=== PATIENT | female | born 1945 | race Caucasian/White ===

== ENCOUNTER 2017-02-18 12:07 | Observation (INO) ==
[2017-02-18] MEDS ORDERED: 0.9 % Sodium Chloride 1,000 ML IVC ONE (12:13)
[2017-02-18] MEDS ORDERED: Ondansetron 4 MG/2 ML VIAL ONE (12:18)
[2017-02-18] MEDS: Ondansetron 4 MG/2 ML VIAL IVP ONE ×2 (12:18→12:23)
--- NOTE | 2017-02-18 12:35 | Emergency Department Note ---
Disposition Clinical Impression: Bleeding gastrointestinal Qualifiers: GI bleed type/associated pathology: gastric ulcer Qualified Code(s): K25.4 - Chronic or unspecified gastric ulcer with hemorrhage Anemia Qualifiers: Anemia type: other cause Other causes of anemia: acute posthemorrhagic Qualified Code(s): D62 - Acute posthemorrhagic anemia Disposition: Admitted As Inpatient Condition: Fair Nausea/Vomiting/Diarrhea HPI - General Chief complaint: ED Nausea/Vomiting/Diarrhea Stated complaint: bloody stool Time Seen by Provider: 02/18/17 12:13 Source: patient, EMS Nursing Notes Reviewed: Yes Vital Signs Reviewed: Yes - History of Present Illness HPI Narrative: I did see the patient immediately upon arrival and also spoke with the paramedics patient presents with dark lack stool mixed with blood and also did have 1 episode of bloody emesis earlier today. She does have dyspnea with exertion and weakness. No current dizziness when she is lying down. And the patient does have a history of gastric bypass 12 years ago. She has been using ibuprofen as well as one aspirin per day due to chronic right leg pain. She denies any blood in the urine, bleeding of the gums, bruising of the skin. No fever. Social history: No smoking or alcohol. Is here with her - Related Data Home Medications Medication Instructions Recorded Confirmed Ascorbic Acid [Vitamin C] 1,000 mg PO DAILY 08/27/15 02/18/17 Cholecalciferol (Vitamin D3) 2,000 unit PO DAILY 08/27/15 02/18/17 [Vitamin D3] Cyanocobalamin (Vitamin B-12) 100 mcg PO 3XW 08/27/15 02/18/17 [Vitamin B12] Latanoprost [Xalatan] 1 drop BOTH EYES HS 08/27/15 02/18/17 Multivitamin [Multi-Day Vitamins] 1 tab PO DAILY 08/27/15 02/18/17 [place]-3S/Dha/Epa/Fish Oil [Fish 1 cap PO DAILY 08/27/15 02/18/17 Oil 1,200 mg Softgel] Allergies Allergy/AdvReac Type Severity Reaction Status Date / Time morphine Allergy Hives Verified 08/31/15 17:24 lisinopril AdvReac Mild Cough Verified 08/31/15 17:24 Review of Systems: Constitutional: No fever Vision: No blurred vision ENT: No rhinorrhea Respiratory: No cough Allergic: No allergies : No blood in urine GI: No blood in stool Hematologic: No bruising Dermatologic: No skin rash Musculoskeletal: No pain in the extremities Neuro: No numbness of the extremities Past Medical History - Past Medical History Medical history: Reports: diabetes, hypertension, other Surgical history: Reports: knee replacement, other Psychiatric history: Reports: no psych history 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 EYES: PERRL, no scleral icterus. NOSE: The nose is normal in appearance without rhinorrhea RESP: Normal chest excursion with respiration; breath sounds clear and equal bilaterally; no wheezes, rhonchi, or rales CARD: Regular rhythm, without murmurs, rub or gallop ABD: Non-distended; non-tender, soft,without rigidity, rebound or guarding SKIN: Normal for age and race; warm and dry; no apparent lesions Rectal: No masses. No fissures. Does have dark black stool mixed with red blood on my exam - General General appearance: alert, in no apparent distress Course Vital Signs Temperature 98.3 F 02/18/17 12:09 Pulse Rate 114 02/18/17 12:09 Respiratory Rate 20 02/18/17 12:09 Blood Pressure 110/64 02/18/17 12:09 O2 Sat by Pulse Oximetry 99 02/18/17 12:09 Temperature 99.7 F H 02/18/17 19:00 Pulse Rate 102 02/18/17 19:00 Respiratory Rate 16 02/18/17 19:00 Blood Pressure 101/65 02/18/17 19:00 O2 Sat by Pulse Oximetry 95 02/18/17 19:00 Oxygen Delivery Oxygen Delivery Room Air Nausea/Vomiting/Diarrhea - MDM Narrative Medical decision making narrative: The patient will have IV fluids, second IV, she is very pale, she does have her for IV Protonix. Type and screen will be done. The patient will be admitted to the hospital. She will be watched closely here in the emergency department. According the paramedics her blood pressure pulse were normal however her oxygen saturation was 93% 1235 I did speak with the hospitalist physician who accepted the patient for admission. I will also call GI. The patient does have 2 IV lines, type and screen, Protonix and she remains tachycardic however her blood pressure is in the acceptable range and she is not acutely short of breath at this time. She does appear pale. 1251 I did discuss the case with the staker surveying and he recommends 1 unit of packed red blood cells which I will give the patient. heart rate is down to 94 but her pressure is lower at 104. time 1408 and also some - Medical Records Medical records reviewed: Yes I reviewed the patient's medical records. - Lab Data Lab results reviewed: Yes I reviewed the patient's lab results. Result diagrams: 02/18/17 19:26 02/18/17 12:31 Lab Results 02/18/17 02/18/17 02/18/17 Range/Units 12:15 12:31 12:31 WBC 10.1 (4.3-11.1) K/mcL RBC 2.89 L (3.82-4.97) M/mcL Hgb 8.1 L (11.5-15.4) g/dL Hct 25.9 L (35.3-44.9) % MCV 89.6 (83.0-100.0) fL MCH 28.0 (28.0-33.3) pg MCHC 31.3 L (31.6-35.5) g/dL RDW 14.1 (11.5-14.5) % Plt Count 259 (140-400) K/mcL MPV 10.7 (9.4-12.4) fL Immature Gran % 0.6 (0-4) % Seg Neutrophils % 65.6 % Lymphocytes % 28.7 % Monocytes % 3.9 % Eosinophils % 0.7 % Basophils % 0.5 % Neutrophils # 6.7 (1.6-8.9) K/mcL Lymphocytes # 2.9 (0.6-4.6) K/mcL Monocytes # 0.4 (0.0-1.3) K/mcL Eosinophils # 0.1 (0.0-0.6) K/mcL Basophils # 0.1 (0.0-0.2) K/mcL Sodium 137 (136-145) mEq/L Potassium 4.8 H (3.5-4.5) mEq/L Chloride 104 (98-109) mEq/L Carbon Dioxide 20 (19-29) mEq/L BUN 44 H (7-20) mg/dL Creatinine 0.95 (0.57-1.11) mg/dL Est GFR ( Amer) > 60 (> 60) Est GFR (Non-Af Amer) 58 L (> 60) BUN/Creatinine Ratio 46 H (6-26) Glucose 272 H (70-99) mg/dL Calculated Osmolality 305 H (280-300) Calcium 8.6 (8.6-10.8) mg/dL Iron 111 (50-170) mcg/dL % Saturation 33 (15-50) % Transferrin 242 (180-382) mg/dL Ferritin 38 (5-204) ng/ml Stool Occult Blood Positive A (Negative) Blood Type Antibody Screen Antibody Identification MTS Gel Crossmatch 02/18/17 Range/Units 12:31 WBC (4.3-11.1) K/mcL RBC (3.82-4.97) M/mcL Hgb (11.5-15.4) g/dL Hct (35.3-44.9) % MCV (83.0-100.0) fL MCH (28.0-33.3) pg MCHC (31.6-35.5) g/dL RDW (11.5-14.5) % Plt Count (140-400) K/mcL MPV (9.4-12.4) fL Immature Gran % (0-4) % Seg Neutrophils % % Lymphocytes % % Monocytes % % Eosinophils % % Basophils % % Neutrophils # (1.6-8.9) K/mcL Lymphocytes # (0.6-4.6) K/mcL Monocytes # (0.0-1.3) K/mcL Eosinophils # (0.0-0.6) K/mcL Basophils # (0.0-0.2) K/mcL Sodium (136-145) mEq/L Potassium (3.5-4.5) mEq/L Chloride (98-109) mEq/L Carbon Dioxide (19-29) mEq/L BUN (7-20) mg/dL Creatinine (0.57-1.11) mg/dL Est GFR ( Amer) (> 60) Est GFR (Non-Af Amer) (> 60) BUN/Creatinine Ratio (6-26) Glucose (70-99) mg/dL Calculated Osmolality (280-300) Calcium (8.6-10.8) mg/dL Iron (50-170) mcg/dL % Saturation (15-50) % Transferrin (180-382) mg/dL Ferritin (5-204) ng/ml Stool Occult Blood (Negative) Blood Type O NEGATIVE Antibody Screen POSITIVE A Antibody Identification Inconclusive MTS Gel Crossmatch See Detail Critical Care Time Critical Care Time: Yes Total Critical Care Time: 30 Attestation: 30 minutes of critical care time were spent with the patient with massive GI hemorrhage and hypotension and tachycardia including orders for blood transfusion and consultation with GI 1412
[2017-02-18 12:37] LABS: Basophils # 0.1 K/mcL (0.0-0.2); Basophils % 0.5 %; Eosinophils # 0.1 K/mcL (0.0-0.6); Eosinophils % 0.7 %; Hematocrit 25.9 % (35.3-44.9); Hemoglobin 8.1 g/dL (11.5-15.4); Immature Granulocytes % 0.6 % (0-4); Lymphocytes # 2.9 K/mcL (0.6-4.6); Lymphocytes % 28.7 %; Mean Corpuscular HGB Conc 31.3 g/dL (31.6-35.5); Mean Corpuscular Volume 89.6 fL (83.0-100.0); Mean Platelet Volume 10.7 fL (9.4-12.4); Monocytes # 0.4 K/mcL (0.0-1.3); Monocytes % 3.9 %; Neutrophils # 6.7 K/mcL (1.6-8.9); Platelet Count 259 K/mcL (140-400); Red Blood Count 2.89 M/mcL (3.82-4.97); Red Cell Distribution Width 14.1 % (11.5-14.5); Segmented Neutrophils % 65.6 %
[2017-02-18 12:49] LABS: BUN/Creatinine Ratio 46 (6-26); Blood Urea Nitrogen 44 mg/dL (7-20); Calcium 8.6 mg/dL (8.6-10.8); Carbon Dioxide 20 mEq/L (19-29); Chloride 104 mEq/L (98-109); Glucose 272 mg/dL (70-99); Osmolality,Calculated 305 (280-300); Potassium 4.8 mEq/L (3.5-4.5); Sodium 137 mEq/L (136-145); eGFR For African Americans > 60 (> 60); eGFR For Non-African Americans 58 (> 60)
[2017-02-18] MEDS ORDERED: Ondansetron 4 MG/2 ML VIAL IVP PRN (12:56)
[2017-02-18] MEDS ORDERED: Naloxone 0.4 MG/ML INJ IVP PRN (12:56)
[2017-02-18] MEDS: Pantoprazole 40 MG in 0.9 % Sodium Chloride Mini Bag 100 ML IVC SCH ×2 (13:49→20:12)
--- NOTE | 2017-02-18 14:21 | Internal Med History&Physical ---
Date of Encounter: 02/18/17 Time of Encounter: 14:00 Assessment and Plan (1) Acute gastrointestinal bleeding Current visit: Yes Status: Acute Patient with GI bleed. Melena and hematemesis. Likely related to upper GI source. Monitor blood counts. Start IV Protonix. Consult GI. Keep nothing by mouth. Transfuse PRBC as needed (2) Essential hypertension Current visit: Yes Status: Chronic Monitor blood pressure. Continue home medications. (3) Anemia Current visit: Yes Status: Acute Hemoglobin 8.1. Likely due to blood loss. Could also have an underlying nutritional component due to prior history of gastric bypass. We will check iron levels, folic acid, B12 levels. Monitor blood counts closely. Qualifiers: Anemia type: other cause Other causes of anemia: acute posthemorrhagic Qualified Code(s): D62 - Acute posthemorrhagic anemia (4) Diabetes Current visit: Yes Status: Chronic Monitor blood sugars. Sliding scale insulin. Patient will be nothing by mouth for now. Start Diabetic diet when patient is able to eat. Qualifiers: Diabetes mellitus type: type 2 Diabetes mellitus complication status: without complication Diabetes mellitus fci insulin use: without terminal operations supervisor use Qualified Code(s): E11.9 - Type 2 diabetes mellitus without complications Internal Medicine - H&P: HPI Chief complaint: Melena Admitted From: Emergency Dept Plans for Post Hospital Care: Home History of present illness: Ms. Keith is a 72 year old female patient with history of prior gastric bypass surgery, hypertension who presented to the ER with complaints of melena and hematemesis. Her symptoms began this morning. She had one episode of large amount of melena and couple episodes of hematemesis. She denies any abdominal pain. She has never had such symptoms before. She does take Advil every day for chronic pain related to her previous right-sided femur fracture. She had a colonoscopy as part of routine surveillance 10 years back which was normal. She does report some generalized weakness, dizziness and lightheadedness today. Past Med Surg Social Fam HX - Past Medical History Attestation: Yes The following information was validated with the patient. Source: patient Medical history: diabetes, hypertension, other Psychiatric history: no psych history - Past Surgical History Surgical History: knee replacement, other - Social History Smoking Status: Never smoker Smokeless Tobacco Status: No Alcohol use: none Drug use: none - Family History Mother Living Status: Hx Family Cardiac Disorders: Yes Father Living Status: Hx Family Cancer: Yes Internal Medicine - H&P: Meds Ascorbic Acid [Vitamin C] 1,000 mg PO DAILY 08/27/15 [History] Cholecalciferol (Vitamin D3) [Vitamin D3] 2,000 unit PO DAILY 08/27/15 [History] Cyanocobalamin (Vitamin B-12) [Vitamin B12] 100 mcg PO 3XW 08/27/15 [History] Latanoprost [Xalatan] 1 drop BOTH EYES HS 08/27/15 [History] Multivitamin [Multi-Day Vitamins] 1 tab PO DAILY 08/27/15 [History] [place]-3S/Dha/Epa/Fish Oil [Fish Oil 1,200 mg Softgel] 1 cap PO DAILY 08/27/15 [ History] Allergies morphine Allergy (Verified 08/31/15 17:24) Hives lisinopril Adverse Reaction (Mild, Verified 08/31/15 17:24) Cough All Systems PM: A 10-system review of systems was performed and is negative for pertinent findings except as documented above in the HPI. - Constitutional Constitutional: malaise, no chills, no fever(s), no night sweats - EENT Eyes: no change in vision, no discharge, no pain, no photophobia Ears: no ear discharge, no ear pain, no tinnitus Nose, mouth and throat: no dysphagia, no nasal discharge, no neck pain, no sore throat - Cardiovascular Cardiovascular ROS IM: no chest pain, no diaphoresis, no dyspnea, no lightheadedness, no palpitations, no syncope - Respiratory Respiratory: no cough, no dyspnea, no wheezing, no excessive phlegm production - Gastrointestinal Gastrointestinal: hematemesis, melena, no abdominal pain, no diarrhea, no hematochezia, no nausea, no vomiting - Genitourinary Genitourinary: no change in urinary stream, no dysuria, no flank pain, no hematuria - Musculoskeletal Musculoskeletal ROS IM: no numbness, no tingling - Integumentary Integumentary IM: no rash, no unusual bruising - Neurological Neurological ROS: no confusion, no convulsions, no focal weakness, no numbness, no tingling, no tremor(s) - Hematologic/Lymphatic Hematologic/Lymphatic: no easy bruising - Constitutional Vitals: Temp Pulse Resp BP Pulse Ox 98.3 F 94 20 104/54 99 02/18/17 12:09 02/18/17 13:16 02/18/17 14:06 02/18/17 14:06 02/18/17 13:16 General appearance: Present: cooperative, mild distress, A&O X 3, pleasant, obese, answers questions appropriately - Respiratory Respiratory exam: Present: CTAB. Absent: accessory muscle use, rales, rhonchi, wheezes - Cardiovascular Cardiovascular exam: Present: RRR, +S1, +S2. Absent: diastolic murmur, gallop, rubs, systolic murmur - GI/Abdominal GI/Abdominal exam: Present: normal bowel sounds, soft, no peritoneal signs. Absent: distended, tenderness - Extremities Exam Extremities exam: Present: warm, radial pulses palpable and symetrical. Absent : calf tenderness, cyanotic, pedal edema - Neurological Exam Neurological exam: Present: alert, oriented X3, no focal deficits. Absent: facial droop, speech deficit - Skin Skin exam: Present: dry, intact Internal Med - H&P Results - Labs CBC & Chem 7: 02/18/17 12:31 02/18/17 12:31 - Attending Attestation This document has been at least partially created by [employer] voice recognition technology by Dr. Fontenot. Errors in grammar, wording or other phrases may exist. If errors are found after the documentation is signed, they will be addressed individually in the addendum section of this document when appropriate.
[2017-02-18] MEDS ORDERED: *HR* Midazolam HCl 5 MG/5 ML VIAL IVP ONE (14:43)
[2017-02-18] MEDS ORDERED: *HR* FentaNYL (PF) 100 MCG/2 ML VIAL ONE (14:44)
[2017-02-18] MEDS ORDERED: *HR* Midazolam HCl 5 MG/5 ML VIAL IVP PRN (15:00)
[2017-02-18] MEDS ORDERED: *HR* FentaNYL (PF) 100 MCG/2 ML VIAL IVP PRN (15:00)
[2017-02-18] MEDS ORDERED: Simethicone 40 MG/0.6 ML MLS IR ONE (15:00)
[2017-02-18] MEDS ORDERED: Tetracaine/Benzocaine/Butamben 200MG/SPRAY (100SPY/BOT) MM ONE (15:00)
[2017-02-18] MEDS ORDERED: *HR* EPINEPHrine 1 MG/10 ML SYRINGE INTRATRACH PRN (15:19)
[2017-02-18] MEDS: 0.9 % Sodium Chloride 1,000 ML IVC SCH (16:59)
[2017-02-18 19:02] LABS: % Iron Saturation 33 % (15-50); Iron 111 mcg/dL (50-170); Transferrin 242 mg/dL (180-382)
[2017-02-18 19:22] LABS: Ferritin 38 ng/ml (5-204)
[2017-02-18 19:34] LABS: Hematocrit 23.3 % (35.3-44.9); Hemoglobin 7.3 g/dL (11.5-15.4)
[2017-02-18] MEDS ORDERED: Acetaminophen 325 MG TABLET PO PRN (19:39)
[2017-02-18 20:30] LABS: Folate 15.4 ng/mL (7.0-31.4)
[2017-02-18] MEDS ORDERED: 0.9 % Sodium Chloride 250 ML ONE (23:33)
[2017-02-19] MEDS ORDERED: 0.9 % Sodium Chloride 250 ML ONE (04:04)
[2017-02-19] MEDS: 0.9 % Sodium Chloride 1,000 ML IVC SCH (04:20)
[2017-02-19] MEDS: Pantoprazole 40 MG in 0.9 % Sodium Chloride Mini Bag 100 ML IVC SCH (04:28)
[2017-02-19] MEDS ORDERED: Pantoprazole 40 MG VIAL IVP SCH (06:00)
[2017-02-19 07:16] VITALS: BP 107/70
--- NOTE | 2017-02-19 08:11 | Discharge Summary ---
Date of Encounter: 02/19/17 Time of Encounter: 08:07 - Discharge Diagnosis (1) Acute blood loss anemia Priority: Primary Status: Acute Comments: secondary to gastric ulcer due to chronic NSAID use/Advil (2) Gastric ulcer Priority: Primary Status: Acute Qualifiers: Gastric ulcer chronicity: acute Gastric ulcer complication status: with hemorrhage Qualified Code(s): K25.0 - Acute gastric ulcer with hemorrhage (3) H/O gastric bypass Priority: Secondary Status: Acute (4) HTN (hypertension) Priority: Secondary Status: Chronic Qualifiers: Hypertension type: essential hypertension Qualified Code(s): I10 - Essential (primary) hypertension (5) Diabetes Priority: Secondary Status: Chronic Qualifiers: Diabetes mellitus type: type 2 Diabetes mellitus complication status: without complication Diabetes mellitus skilled nursing insulin use: without terminal worker use Qualified Code(s): E11.9 - Type 2 diabetes mellitus without complications (6) Acute gastrointestinal bleeding Priority: Primary Status: Acute - Discharge Medications Prescriptions: Omeprazole [PriLOSEC] 40 mg PO BID #60 cap Home Medications: Ascorbic Acid [Vitamin C] 1,000 mg PO DAILY 08/27/15 [History] Cholecalciferol (Vitamin D3) [Vitamin D3] 2,000 unit PO DAILY 08/27/15 [History] Cyanocobalamin (Vitamin B-12) [Vitamin B12] 100 mcg PO 3XW 08/27/15 [History] Latanoprost [Xalatan] 1 drop BOTH EYES HS 08/27/15 [History] Multivitamin [Multi-Day Vitamins] 1 tab PO DAILY 08/27/15 [History] [place]-3S/Dha/Epa/Fish Oil [Fish Oil 1,200 mg Softgel] 1 cap PO DAILY 08/27/15 [ History] Acetaminophen [Tylenol] 650 mg PO Q6HR PRN #0 tablet 02/19/17 [Rx] Omeprazole [PriLOSEC] 40 mg PO BID #60 cap 02/19/17 [Rx] Allergies/Adverse Reactions: Allergies morphine Allergy (Verified 08/31/15 17:24) Hives lisinopril Adverse Reaction (Mild, Verified 08/31/15 17:24) Cough Date of admission: 02/18/17 13:40 Primary care physician: Lenny Jacobs MD Consults: 02/18/17 14:10 Consult to Gastroenterology [CONS] Routine Consulting Provider: Gastroenterology [facility] Reason for Consult: GI bleed; ED discussed with GI Time Notified: 14:11 Call Completed: Yes - Patient Status Disposition: Home, Self-Care Condition: Fair Overall status at discharge: patient is back to baseline - Discharge Instructions Follow Up With: Lenny Jacobs MD [Primary Care Provider] - Additional Instructions: Follow up with primary care physician in 7 days. Avoid Advil. Start omeprazole 40 mg twice a day. Follow up with Dr Unger in 3-4 weeks. Can start Iron supplements - Diet and Activity Activity: increase activity as tolerated Diet: diabetic diet Hospital course: Ms. Keith is a 72 year old female with history of prior gastric bypass surgery , hypertension, DM 2 not ID, who presented to the ER with complaints of melena and hematemesis. She had one episode of large amount of melena and couple episodes of hematemesis. She denied any abdominal pain. She has never had such symptoms before. She did take Advil every day for chronic pain related to her previous right-sided femur fracture. She had a colonoscopy as part of routine surveillance 10 years back which was normal. She did report some generalized weakness, dizziness and lightheadedness. her hemoglobin dropped from 8.1 mert 7.3. Had II units of blood transfused. An upper endoscopy was performed and a non bleeding gastric ulcer was found, the ulcer was clipped, and was found to have clot on top. Has not had any further episodes of hematemesis or melena. Hemoglobin is 8.8 Avoid Nsaids - Time Spent with Patient Total time spent providing and/or coordinating discharge services: Greater than 30 minutes (40 min) - Constitutional Vitals: Temp Pulse Resp BP Pulse Ox 98.4 F 77 16 107/70 96 02/19/17 07:15 02/19/17 07:15 02/19/17 07:15 02/19/17 07:15 02/19/17 07:15 General appearance: Present: cooperative, mild distress, A&O X 3, pleasant, obese, answers questions appropriately - Head Head exam: Present: atraumatic, normocephalic - Eye Eye exam: Present: PERRL, conjuntiva pink, sclera anicteric Pupils: Present: PERRL - Neck Neck exam general surgery: Present: supple, trachea midline. Absent: lymphadenopathy - Respiratory Respiratory exam: Present: CTAB. Absent: accessory muscle use, rales, rhonchi, wheezes - Cardiovascular Cardiovascular exam: Present: RRR, +S1, +S2. Absent: diastolic murmur, gallop, rubs, systolic murmur - GI/Abdominal GI/Abdominal exam: Present: normal bowel sounds, soft, no peritoneal signs. Absent: distended, tenderness - Extremities Exam Extremities exam: Present: warm, radial pulses palpable and symetrical. Absent : calf tenderness, cyanotic, pedal edema - Neurological Exam Neurological exam: Present: CN II-XII intact, oriented X3, no focal deficits. Absent: pronater drift, facial droop, speech deficit - Skin Skin exam: Present: dry, intact
[2017-02-19 08:35] LABS: Basophils % 0.3 %; Eosinophils # 0.1 K/mcL (0.0-0.6); Eosinophils % 1.2 %; Hemoglobin 8.8 g/dL (11.5-15.4); Immature Granulocytes % 0.6 % (0-4); Lymphocytes # 3.6 K/mcL (0.6-4.6); Lymphocytes % 34.7 %; Mean Corpuscular HGB Conc 31.4 g/dL (31.6-35.5); Mean Corpuscular Hemoglobin 27.9 pg (28.0-33.3); Mean Corpuscular Volume 88.9 fL (83.0-100.0); Mean Platelet Volume 11.3 fL (9.4-12.4); Monocytes # 0.5 K/mcL (0.0-1.3); Monocytes % 4.9 %; Neutrophils # 6.1 K/mcL (1.6-8.9); Platelet Count 199 K/mcL (140-400); Red Blood Count 3.15 M/mcL (3.82-4.97); Red Cell Distribution Width 14.6 % (11.5-14.5); Segmented Neutrophils % 58.3 %
[2017-02-19 08:51] LABS: BUN/Creatinine Ratio 30 (6-26); Blood Urea Nitrogen 24 mg/dL (7-20); Calcium 8.6 mg/dL (8.6-10.8); Carbon Dioxide 24 mEq/L (19-29); Chloride 107 mEq/L (98-109); Glucose 150 mg/dL (70-99); Osmolality,Calculated 297 (280-300); Potassium 3.9 mEq/L (3.5-4.5); Sodium 140 mEq/L (136-145); eGFR For African Americans > 60 (> 60); eGFR For Non-African Americans > 60 (> 60)
--- NOTE | 2017-02-19 08:56 | Gastroenterology Consult Note ---
<Elza Smith - Last Filed: 02/19/17 09:51> Date of Encounter: 02/19/17 Time of Encounter: 08:50 - Assessment and plan (1) Acute gastrointestinal bleeding Current Visit: Yes Status: Acute Assessment and plan: Underwent EGD evaluation with Dr. Unger this am, gastric ulcer was located. Patient has hx of prior gastric bypass surgery. Needs to be d/c home on omeprazole, however, recommendation to empty the capsules in food or beverage to consume, do not swallow the capsules whole. Carafate liquid tid x 60 days is recommended, as well as a clear liquid diet today, soft foods over the next couple of days only. Return to GI clinic in follow up with Dr. Unger or myself. (2) H/O gastric bypass Current Visit: Yes Status: Acute - Time Spent With Patient Total time spent is greater than 50% in coordination of care (as documented) at patient's floor/unit and/or counseling patient: less than 15 minutes GI History of Present Illness - Data of Consult Patient: new to practice Consult date: 02/19/17 Requesting Physician: Carlos Thomas - Consult Narrative Reason for consult: hematemesis/melena History of present illness: Ms. Keith is a 72 year old female with PMH DM, HTN, prior gastric bypass surgery, who presented to the ER with complaints of melena and hematemesis. Her symptoms began yesterday morning. She had one episode of large amount of melena and couple episodes of hematemesis. She denies any abdominal pain. She has never had such symptoms before. She does take Advil every day for chronic pain related to her previous right-sided femur fracture. She had a colonoscopy as part of routine surveillance 10 years back which was normal. She does report some generalized weakness, dizziness and lightheadedness today. Patient seen and examined at bedside. She was resting comfortably. She states she was using too many NSAIDs prior to this event, however, she states the only other symptom she had prior to melena/hematemesis was excess flatulence/gas and weakness just prior to the event. Last Cscope 10 years ago was normal. Colonoscopy: 10 years Past Med Surg Social Fam HX - Past Medical History Medical history: diabetes, hypertension, other Psychiatric history: no psych history - Past Surgical History Surgical History: knee replacement, other - Social History Smoking Status: Never smoker Smokeless Tobacco Status: No Alcohol use: none Drug use: none - Family History Mother Living Status: Hx Family Cardiac Disorders: Yes Father Living Status: Hx Family Cancer: Yes - Gastrointestinal NSAID use: Yes` Anticoagulation Use: None Number of BM Per Day: daily Gastrointestinal: Present: hematemesis, melena - Constitutional Constitutional: fatigue - EENT Eyes: as per HPI Ears: Present: as per HPI Nose, mouth and throat: Present: as per HPI - Cardiovascular Cardiovascular ROS: Present: as per HPI - Respiratory Respiratory IM: Present: as per HPI - Neurological ROS Neurological GI: Present: dizziness, weakness - Hematologic/Lymphatic Hematologic/Lymphatic pediatric: Present: as per HPI - Musculoskeletal Musculoskeletal ROS GI: Present: as per HPI - Integumentary Integumentary GI: Present: as per HPI - Psychiatric ROS Psychiatric GI: Present: as per HPI - Endocrine Endocrine IM: Present: as per HPI - Constitutional Vitals: Temp Pulse Resp BP Pulse Ox 98.4 F 77 16 107/70 96 02/19/17 07:15 02/19/17 07:15 02/19/17 07:15 02/19/17 07:15 02/19/17 07:15 General appearance: Present: cooperative, A&O X 3, no acute distress, answers questions appropriately - Head Head exam: Present: atraumatic, normocephalic - Eye Eye exam: Present: normal appearance, sclera anicteric - ENT ENT exam: Present: mucous membranes moist - Neck Neck exam general surgery: Present: normal inspection, trachea midline - Respiratory Respiratory exam: Present: CTAB - Cardiovascular Cardiovascular exam: Present: RRR, +S1, +S2 - GI/Abdominal GI/Abdominal exam: Present: normal bowel sounds, soft, no peritoneal signs - Rectal Rectal exam: Present: deferred - Extremities Exam Extremities exam: Present: warm - Neurological Exam Neurological exam: Present: no focal deficits - Psychiatric Psychiatric exam: Present: normal affect, normal mood - Skin Skin exam: Present: dry, intact, normal color, warm Results - Labs CBC & Chem 7: 02/19/17 08:03 02/19/17 08:03 Labs: Last Result Calcium 8.6 mg/dL (8.6-10.8) 02/19/17 08:03 Iron 111 mcg/dL (50-170) 02/18/17 12:31 % Saturation 33 % (15-50) 02/18/17 12:31 Transferrin 242 mg/dL (180-382) 02/18/17 12:31 Ferritin 38 ng/ml (5-204) 02/18/17 12:31 Vitamin B12 881 pg/mL (213-816) H 02/18/17 19:26 Folate 15.4 ng/mL (7.0-31.4) 02/18/17 19:26 Stool Occult Blood Positive (Negative) A 02/18/17 12:15 Entire Visit Hgb 8.8 g/dL (11.5-15.4) L D 02/19/17 08:03 Hct 28.0 % (35.3-44.9) L 02/19/17 08:03 Ferritin 38 ng/ml (5-204) 02/18/17 12:31 Folate 15.4 ng/mL (7.0-31.4) 02/18/17 19:26 Consult Discharge Plan - Plan Additional Instructions: Follow up with primary care physician in 7 days. Avoid Advil. Start omeprazole 40 mg twice a day. Follow up with Dr Unger in 3-4 weeks. Can start Iron supplements Referrals: William Unger MD [Partnered Physician] - (Web request sent on 02/19/17) Lenny Jacobs MD [Primary Care Provider] - 02/26/17 10:00 am Prescriptions: Omeprazole [PriLOSEC] 40 mg PO BID #60 cap <William Unger - Last Filed: 02/19/17 10:35> Date of Encounter: 02/19/17 Time of Encounter: 10:00 - Time Spent With Patient Total time spent is greater than 50% in coordination of care (as documented) at patient's floor/unit and/or counseling patient: GI History of Present Illness - Data of Consult Requesting Physician: Carlos Thomas - Consult Narrative History of present illness: Ms. Keith is a 72 year old female - Constitutional Vitals: Temp Pulse Resp BP Pulse Ox 98.4 F 77 16 107/70 96 02/19/17 07:15 02/19/17 07:15 02/19/17 07:15 02/19/17 07:15 02/19/17 07:15 Results - Labs CBC & Chem 7: 02/19/17 08:03 02/19/17 08:03 Labs: Last Result Calcium 8.6 mg/dL (8.6-10.8) 02/19/17 08:03 Iron 111 mcg/dL (50-170) 02/18/17 12:31 % Saturation 33 % (15-50) 02/18/17 12:31 Transferrin 242 mg/dL (180-382) 02/18/17 12:31 Ferritin 38 ng/ml (5-204) 02/18/17 12:31 Vitamin B12 881 pg/mL (213-816) H 02/18/17 19:26 Folate 15.4 ng/mL (7.0-31.4) 02/18/17 19:26 Stool Occult Blood Positive (Negative) A 02/18/17 12:15 Entire Visit Hgb 8.8 g/dL (11.5-15.4) L D 02/19/17 08:03 Hct 28.0 % (35.3-44.9) L 02/19/17 08:03 Ferritin 38 ng/ml (5-204) 02/18/17 12:31 Folate 15.4 ng/mL (7.0-31.4) 02/18/17 19:26 - Attending Attestation I examined this patient and my medical decision-making was reviewed with the ELECTRICAL PROSPECTING OPERATOR/PA/Advanced Practice Nurse/Resident Physician. I agree with the documented findings, disposition and treatment plan as described except to the extent set forth below. Discharge home on by mouth PPI twice a day. Patient is to take out the granules from the capsule and sprinkle on the food. Also Carafate liquid 3 times a day
[2017-02-19] MEDS ORDERED: Ascorbic Acid 500 MG TABLET PO SCH (09:00)
[2017-02-19] MEDS ORDERED: Multivit/Ca/Min/Fe/FA 1 TAB TABLET PO SCH (09:00)
== END 2017-02-19 12:35 | disposition home or self-care (01) ==
LOC: EMEROO 12:07 → 3ANU 12:07
PROVIDERS: ADMIT Internal Medicine; ATTEND Internal Medicine

== ENCOUNTER 2021-11-27 07:26 | Inpatient (IN) ==
[2021-11-27] MEDS ORDERED: *HR* FentaNYL (PF) 100 MCG/2 ML VIAL IVP ONE (07:35)
[2021-11-27] MEDS ORDERED: Ondansetron 4 MG/2 ML VIAL IVP ONE (07:35)
[2021-11-27] MEDS: 0.9 % Sodium Chloride 1,000 ML IVC SCH ×2 (08:01→20:12)
[2021-11-27 08:49] LABS: Basophils % 0.2 %; Eosinophils % 0.1 %; Hematocrit 32.8 % (35.3-44.9); Hemoglobin 10.3 g/dL (11.5-15.4); Immature Granulocytes % 0.4 % (0-4); Lymphocytes # 0.4 K/mcL (0.6-4.6); Lymphocytes % 4.4 %; Mean Corpuscular HGB Conc 31.4 g/dL (31.6-35.5); Mean Corpuscular Hemoglobin 28.9 pg (28.0-33.3); Mean Corpuscular Volume 92.1 fL (83.0-100.0); Mean Platelet Volume 10.9 fL (9.4-12.4); Monocytes # 0.6 K/mcL (0.0-1.3); Monocytes % 6.6 %; Neutrophils # 8.1 K/mcL (1.6-8.9); Platelet Count 172 K/mcL (140-400); Red Blood Count 3.56 M/mcL (3.82-4.97); Red Cell Distribution Width 13.1 % (11.5-14.5); Segmented Neutrophils % 88.3 %; White Blood Count 9.2 K/mcL (4.3-11.1)
[2021-11-27 09:00] LABS: Calcium 8.5 mg/dL (8.6-10.3); Potassium 4.5 mEq/L (3.5-5.1)
[2021-11-27] MEDS ORDERED: *HR* OxyCODONE Immed Rel 5 MG TABLET PO PRN (09:41)
[2021-11-27] MEDS ORDERED: Acetaminophen 325 MG TABLET PO PRN (09:41)
[2021-11-27] MEDS ORDERED: *HR* HYDROcodone/Acet 5/325 mg TABLET PO PRN (09:41)
[2021-11-27] MEDS ORDERED: Ondansetron 4 MG/2 ML VIAL IVP PRN (09:41)
[2021-11-27] MEDS ORDERED: Naloxone 0.4 MG/ML INJ IVP PRN (09:41)
[2021-11-27 10:03] LABS: Bacteria,Urine Many per hpf (None-Few); Bilirubin,Urine Negative (Negative); Blood,Urine Trace (Negative); Clarity,Urine Clear (Clear); Color,Urine Light-Yellow (Yellow); Glucose,Urine (UA) Normal (Normal); Ketones,Urine Negative (Negative); Leukocyte Esterase,Urine Moderate (Negative); Mucus,Urine Few per lpf (None-Few); Nitrite,Urine Negative (Negative); PH,Urine 5.5 pH Units (5.0-8.0); Protein,Urine Trace mg/dL (Neg-Trace); RBC,Urine 0-3 per hpf (0-3); Specific Gravity,Urine 1.009 (1.010-1.025); Urobilinogen,Urine Normal (Normal); WBC,Urine 15-30 per hpf (0-3)
[2021-11-27] MEDS ORDERED: *HR* Dextrose 50 % in Water (Syg) 50 ML SYRINGE IVP PRN (10:32)
[2021-11-27] MEDS ORDERED: Dextrose Gel 15 GM/37.5 ML TUBE PO PRN (10:32)
[2021-11-27] MEDS ORDERED: D5% in Water 1,000 ML IVC PRN (10:32)
[2021-11-27 11:10] LABS: Influenza A PCR Negative (Negative); Influenza B PCR Negative (Negative); Resp. Syncytial Virus PCR Negative (Negative)
[2021-11-27 11:13] LABS: Thyroid Stimulating Hormone 2.58 mcIU/mL (0.340-5.600)
[2021-11-27 11:14] LABS: SARS-CoV-2 by PCR (In House) Negative (Negative)
[2021-11-27] MEDS: Insulin LISPRO 300 UNITS/3 ML VIAL SUBQ SCH ×3 (12:28→21:05)
[2021-11-27] MEDS: *HR* Heparin 5,000 UNIT/ML VIAL SQ SCH ×2 (18:05→21:04)
[2021-11-27] MEDS: Gabapentin 300 MG CAPSULE PO SCH (21:05)
[2021-11-27] MEDS: Latanoprost 2.5 ML BOTTLE BOTH EYES SCH (21:05)
[2021-11-28 05:17] LABS: Hematocrit 31.3 % (35.3-44.9); Hemoglobin 9.9 g/dL (11.5-15.4); Mean Corpuscular HGB Conc 31.6 g/dL (31.6-35.5); Mean Corpuscular Hemoglobin 29.5 pg (28.0-33.3); Mean Corpuscular Volume 93.2 fL (83.0-100.0); Mean Platelet Volume 11.2 fL (9.4-12.4); Platelet Count 193 K/mcL (140-400); Red Blood Count 3.36 M/mcL (3.82-4.97); Red Cell Distribution Width 13.2 % (11.5-14.5)
[2021-11-28 05:32] LABS: BUN/Creatinine Ratio 13 (6-26); Blood Urea Nitrogen 13 mg/dL (8-23); Calcium 8.7 mg/dL (8.6-10.3); Carbon Dioxide 25 mEq/L (23-29); Chloride 97 mEq/L (98-107); Glucose 148 mg/dL (70-105); Osmolality,Calculated 273 (280-300); Potassium 3.9 mEq/L (3.5-5.1); Sodium 130 mEq/L (136-145); eGFR For African Americans > 60 (> 60); eGFR For Non-African Americans 56 (> 60)
[2021-11-28] MEDS: *HR* Heparin 5,000 UNIT/ML VIAL SQ SCH ×3 (05:35→20:59)
[2021-11-28] MEDS: Insulin LISPRO 300 UNITS/3 ML VIAL SUBQ SCH ×4 (07:56→20:59)
[2021-11-28] MEDS: Multivit/Ca/Min/Fe/FA 1 TAB TABLET PO SCH (09:25)
[2021-11-28] MEDS: Ascorbic Acid 500 MG TABLET PO SCH (09:25)
[2021-11-28] MEDS: Gabapentin 300 MG CAPSULE PO SCH ×2 (09:25→20:58)
[2021-11-28 10:57] LABS: Calcium 8.6 mg/dL (8.6-10.3); Potassium 4.3 mEq/L (3.5-5.1)
[2021-11-28] MEDS: 0.9 % Sodium Chloride 1,000 ML IVC SCH (14:55)
[2021-11-28] MEDS: *HR* HYDROcodone/Acet 5/325 mg TABLET PO PRN (17:45)
[2021-11-28] MEDS ORDERED: QUEtiapine Fumarate 25 MG TABLET PO ONE (20:50)
[2021-11-28] MEDS: Latanoprost 2.5 ML BOTTLE BOTH EYES SCH (20:58)
[2021-11-29 03:44] LABS: Basophils % 0.2 %; Eosinophils # 0.2 K/mcL (0.0-0.6); Eosinophils % 2.7 %; Hematocrit 29.3 % (35.3-44.9); Hemoglobin 9.2 g/dL (11.5-15.4); Immature Granulocytes % 0.3 % (0-4); Lymphocytes # 1.2 K/mcL (0.6-4.6); Lymphocytes % 13.1 %; Mean Corpuscular HGB Conc 31.4 g/dL (31.6-35.5); Mean Corpuscular Hemoglobin 29.1 pg (28.0-33.3); Mean Corpuscular Volume 92.7 fL (83.0-100.0); Mean Platelet Volume 11.1 fL (9.4-12.4); Monocytes % 11.6 %; Neutrophils # 6.3 K/mcL (1.6-8.9); Platelet Count 196 K/mcL (140-400); Red Blood Count 3.16 M/mcL (3.82-4.97); Red Cell Distribution Width 13.4 % (11.5-14.5); Segmented Neutrophils % 72.1 %; White Blood Count 8.8 K/mcL (4.3-11.1)
[2021-11-29 04:00] LABS: BUN/Creatinine Ratio 17 (6-26); Blood Urea Nitrogen 18 mg/dL (8-23); Calcium 8.8 mg/dL (8.6-10.3); Carbon Dioxide 27 mEq/L (23-29); Chloride 96 mEq/L (98-107); Glucose 165 mg/dL (70-105); Magnesium 1.9 mg/dL (1.6-2.6); Osmolality,Calculated 276 (280-300); Sodium 130 mEq/L (136-145); eGFR For African Americans > 60 (> 60); eGFR For Non-African Americans 50 (> 60)
[2021-11-29] MEDS: *HR* HYDROcodone/Acet 5/325 mg TABLET PO PRN ×2 (04:39→16:56)
[2021-11-29] MEDS: *HR* Heparin 5,000 UNIT/ML VIAL SQ SCH ×3 (04:39→21:07)
[2021-11-29] MEDS: Ascorbic Acid 500 MG TABLET PO SCH (07:50)
[2021-11-29] MEDS: Multivit/Ca/Min/Fe/FA 1 TAB TABLET PO SCH (07:50)
[2021-11-29] MEDS: Gabapentin 300 MG CAPSULE PO SCH ×2 (07:50→21:05)
[2021-11-29] MEDS: Insulin LISPRO 300 UNITS/3 ML VIAL SUBQ SCH ×4 (08:12→21:35)
[2021-11-29] MEDS: Piperacillin/Tazobactam 3.375 GM in 0.9 % Sodium Chloride Mini Bag 100 ML IVPB SCH ×2 (13:44→21:06)
[2021-11-29] MEDS: Melatonin 3 MG TABLET PO SCH (21:05)
[2021-11-29] MEDS: Latanoprost 2.5 ML BOTTLE BOTH EYES SCH (21:06)
[2021-11-30 05:14] LABS: Basophils % 0.3 %; Eosinophils # 0.2 K/mcL (0.0-0.6); Eosinophils % 2.7 %; Hematocrit 30.4 % (35.3-44.9); Hemoglobin 9.2 g/dL (11.5-15.4); Immature Granulocytes % 0.3 % (0-4); Lymphocytes # 1.1 K/mcL (0.6-4.6); Lymphocytes % 12.7 %; Mean Corpuscular HGB Conc 30.3 g/dL (31.6-35.5); Mean Corpuscular Hemoglobin 28.5 pg (28.0-33.3); Mean Corpuscular Volume 94.1 fL (83.0-100.0); Mean Platelet Volume 10.9 fL (9.4-12.4); Monocytes # 0.7 K/mcL (0.0-1.3); Monocytes % 8.1 %; Neutrophils # 6.7 K/mcL (1.6-8.9); Platelet Count 229 K/mcL (140-400); Red Blood Count 3.23 M/mcL (3.82-4.97); Red Cell Distribution Width 13.4 % (11.5-14.5); Segmented Neutrophils % 75.9 %; White Blood Count 8.8 K/mcL (4.3-11.1)
[2021-11-30 05:31] LABS: BUN/Creatinine Ratio 16 (6-26); Blood Urea Nitrogen 14 mg/dL (8-23); Carbon Dioxide 24 mEq/L (23-29); Chloride 98 mEq/L (98-107); Glucose 187 mg/dL (70-105); Magnesium 1.8 mg/dL (1.6-2.6); Osmolality,Calculated 277 (280-300); Potassium 4.1 mEq/L (3.5-5.1); Sodium 131 mEq/L (136-145); eGFR For African Americans > 60 (> 60); eGFR For Non-African Americans > 60 (> 60)
[2021-11-30] MEDS: *HR* Heparin 5,000 UNIT/ML VIAL SQ SCH ×3 (06:14→20:38)
[2021-11-30] MEDS: Piperacillin/Tazobactam 3.375 GM in 0.9 % Sodium Chloride Mini Bag 100 ML IVPB SCH ×3 (06:14→20:37)
[2021-11-30] MEDS: Multivit/Ca/Min/Fe/FA 1 TAB TABLET PO SCH (08:10)
[2021-11-30] MEDS: Ascorbic Acid 500 MG TABLET PO SCH (08:10)
[2021-11-30] MEDS: Insulin LISPRO 300 UNITS/3 ML VIAL SUBQ SCH ×4 (08:19→20:37)
[2021-11-30] MEDS: Acetaminophen 325 MG TABLET PO PRN (18:14)
[2021-11-30] MEDS: Melatonin 3 MG TABLET PO SCH (20:37)
[2021-11-30] MEDS: Latanoprost 2.5 ML BOTTLE BOTH EYES SCH (20:38)
[2021-12-01 00:35] LABS: Basophils # 0.1 K/mcL (0.0-0.2); Basophils % 0.6 %; Eosinophils # 0.3 K/mcL (0.0-0.6); Eosinophils % 3.1 %; Hematocrit 30.6 % (35.3-44.9); Hemoglobin 9.5 g/dL (11.5-15.4); Immature Granulocytes % 0.7 % (0-4); Lymphocytes # 1.5 K/mcL (0.6-4.6); Lymphocytes % 16.9 %; Mean Corpuscular Hemoglobin 28.8 pg (28.0-33.3); Mean Corpuscular Volume 92.7 fL (83.0-100.0); Mean Platelet Volume 10.5 fL (9.4-12.4); Monocytes # 0.8 K/mcL (0.0-1.3); Monocytes % 9.2 %; Platelet Count 269 K/mcL (140-400); Red Cell Distribution Width 13.3 % (11.5-14.5); Segmented Neutrophils % 69.5 %; White Blood Count 8.6 K/mcL (4.3-11.1)
[2021-12-01 00:54] LABS: BUN/Creatinine Ratio 17 (6-26); Blood Urea Nitrogen 14 mg/dL (8-23); Calcium 9.1 mg/dL (8.6-10.3); Carbon Dioxide 26 mEq/L (23-29); Chloride 98 mEq/L (98-107); Glucose 166 mg/dL (70-105); Osmolality,Calculated 280 (280-300); Sodium 133 mEq/L (136-145); eGFR For African Americans > 60 (> 60); eGFR For Non-African Americans > 60 (> 60)
[2021-12-01] MEDS: Piperacillin/Tazobactam 3.375 GM in 0.9 % Sodium Chloride Mini Bag 100 ML IVPB SCH ×3 (04:55→23:39)
[2021-12-01] MEDS: *HR* Heparin 5,000 UNIT/ML VIAL SQ SCH ×3 (04:55→23:41)
[2021-12-01] MEDS: Multivit/Ca/Min/Fe/FA 1 TAB TABLET PO SCH (08:40)
[2021-12-01] MEDS: Ascorbic Acid 500 MG TABLET PO SCH (08:41)
[2021-12-01] MEDS: Insulin LISPRO 300 UNITS/3 ML VIAL SUBQ SCH ×4 (10:19→23:38)
[2021-12-01] MEDS: *HR* HYDROcodone/Acet 5/325 mg TABLET PO PRN ×2 (11:05→19:02)
[2021-12-01] MEDS: Latanoprost 2.5 ML BOTTLE BOTH EYES SCH (23:37)
[2021-12-01] MEDS: Melatonin 3 MG TABLET PO SCH (23:37)
[2021-12-02 05:06] LABS: BUN/Creatinine Ratio 20 (6-26); Blood Urea Nitrogen 17 mg/dL (8-23); Calcium 9.2 mg/dL (8.6-10.3); Carbon Dioxide 26 mEq/L (23-29); Chloride 98 mEq/L (98-107); Glucose 194 mg/dL (70-105); Osmolality,Calculated 287 (280-300); Potassium 3.8 mEq/L (3.5-5.1); Sodium 135 mEq/L (136-145); eGFR For African Americans > 60 (> 60); eGFR For Non-African Americans > 60 (> 60)
[2021-12-02] MEDS: *HR* HYDROcodone/Acet 5/325 mg TABLET PO PRN ×2 (05:58→18:00)
[2021-12-02] MEDS: Piperacillin/Tazobactam 3.375 GM in 0.9 % Sodium Chloride Mini Bag 100 ML IVPB SCH ×3 (05:58→20:44)
[2021-12-02] MEDS: *HR* Heparin 5,000 UNIT/ML VIAL SQ SCH ×3 (05:59→20:45)
[2021-12-02] MEDS: Ascorbic Acid 500 MG TABLET PO SCH (07:54)
[2021-12-02] MEDS: Multivit/Ca/Min/Fe/FA 1 TAB TABLET PO SCH (07:54)
[2021-12-02] MEDS: Insulin LISPRO 300 UNITS/3 ML VIAL SUBQ SCH ×4 (07:55→20:46)
[2021-12-02] MEDS: Acetaminophen 325 MG TABLET PO PRN (20:45)
[2021-12-02] MEDS: Melatonin 3 MG TABLET PO SCH (20:45)
[2021-12-02] MEDS: Latanoprost 2.5 ML BOTTLE BOTH EYES SCH (20:46)
[2021-12-03 05:13] LABS: BUN/Creatinine Ratio 15 (6-26); Blood Urea Nitrogen 13 mg/dL (8-23); Calcium 9.4 mg/dL (8.6-10.3); Carbon Dioxide 29 mEq/L (23-29); Chloride 98 mEq/L (98-107); Glucose 173 mg/dL (70-105); Osmolality,Calculated 284 (280-300); Potassium 3.9 mEq/L (3.5-5.1); Sodium 135 mEq/L (136-145); eGFR For African Americans > 60 (> 60); eGFR For Non-African Americans > 60 (> 60)
[2021-12-03] MEDS: Piperacillin/Tazobactam 3.375 GM in 0.9 % Sodium Chloride Mini Bag 100 ML IVPB SCH ×2 (05:50→19:04)
[2021-12-03] MEDS: *HR* Heparin 5,000 UNIT/ML VIAL SQ SCH ×3 (06:03→20:17)
[2021-12-03] MEDS: *HR* HYDROcodone/Acet 5/325 mg TABLET PO PRN ×2 (06:04→19:04)
[2021-12-03] MEDS: Ascorbic Acid 500 MG TABLET PO SCH (12:10)
[2021-12-03] MEDS: Multivit/Ca/Min/Fe/FA 1 TAB TABLET PO SCH (12:11)
[2021-12-03] MEDS: Insulin LISPRO 300 UNITS/3 ML VIAL SUBQ SCH ×4 (12:11→20:14)
[2021-12-03] MEDS: Acetaminophen 325 MG TABLET PO PRN (19:04)
[2021-12-03] MEDS: Latanoprost 2.5 ML BOTTLE BOTH EYES SCH (20:16)
[2021-12-03] MEDS: Melatonin 3 MG TABLET PO SCH (20:17)
[2021-12-04 04:47] LABS: Basophils # 0.1 K/mcL (0.0-0.2); Basophils % 0.7 %; Eosinophils # 0.3 K/mcL (0.0-0.6); Eosinophils % 2.5 %; Hematocrit 29.2 % (35.3-44.9); Hemoglobin 9.2 g/dL (11.5-15.4); Immature Granulocytes % 3.4 % (0-4); Lymphocytes # 2.1 K/mcL (0.6-4.6); Lymphocytes % 19.4 %; Mean Corpuscular HGB Conc 31.5 g/dL (31.6-35.5); Mean Corpuscular Hemoglobin 29.4 pg (28.0-33.3); Mean Corpuscular Volume 93.3 fL (83.0-100.0); Mean Platelet Volume 10.2 fL (9.4-12.4); Monocytes # 0.7 K/mcL (0.0-1.3); Monocytes % 6.1 %; Neutrophils # 7.3 K/mcL (1.6-8.9); Platelet Count 459 K/mcL (140-400); Red Blood Count 3.13 M/mcL (3.82-4.97); Red Cell Distribution Width 13.6 % (11.5-14.5); Segmented Neutrophils % 67.9 %; White Blood Count 10.7 K/mcL (4.3-11.1)
[2021-12-04 05:02] LABS: BUN/Creatinine Ratio 15 (6-26); Blood Urea Nitrogen 13 mg/dL (8-23); Calcium 9.5 mg/dL (8.6-10.3); Carbon Dioxide 30 mEq/L (23-29); Chloride 98 mEq/L (98-107); Glucose 155 mg/dL (70-105); Osmolality,Calculated 287 (280-300); Potassium 3.9 mEq/L (3.5-5.1); Sodium 137 mEq/L (136-145); eGFR For African Americans > 60 (> 60); eGFR For Non-African Americans > 60 (> 60)
[2021-12-04] MEDS: Piperacillin/Tazobactam 3.375 GM in 0.9 % Sodium Chloride Mini Bag 100 ML IVPB SCH ×4 (05:44→21:35)
[2021-12-04] MEDS: *HR* Heparin 5,000 UNIT/ML VIAL SQ SCH ×3 (05:47→20:49)
[2021-12-04 06:19] LABS: Estimated Average Glucose 160 mg/dl; Hemoglobin A1C 7.2 %
[2021-12-04] MEDS: Ascorbic Acid 500 MG TABLET PO SCH (07:48)
[2021-12-04] MEDS: Multivit/Ca/Min/Fe/FA 1 TAB TABLET PO SCH (07:48)
[2021-12-04] MEDS: *HR* HYDROcodone/Acet 5/325 mg TABLET PO PRN ×2 (07:50→17:28)
[2021-12-04] MEDS: Insulin LISPRO 300 UNITS/3 ML VIAL SUBQ SCH ×4 (07:52→20:51)
[2021-12-04] MEDS: Melatonin 3 MG TABLET PO SCH (20:49)
[2021-12-04] MEDS: Latanoprost 2.5 ML BOTTLE BOTH EYES SCH (20:51)
[2021-12-05 04:46] LABS: Basophils # 0.1 K/mcL (0.0-0.2); Basophils % 0.9 %; Eosinophils # 0.3 K/mcL (0.0-0.6); Eosinophils % 2.8 %; Hematocrit 32.5 % (35.3-44.9); Hemoglobin 9.6 g/dL (11.5-15.4); Lymphocytes # 2.2 K/mcL (0.6-4.6); Lymphocytes % 17.9 %; Mean Corpuscular HGB Conc 29.5 g/dL (31.6-35.5); Mean Corpuscular Hemoglobin 28.1 pg (28.0-33.3); Mean Platelet Volume 10.7 fL (9.4-12.4); Monocytes # 0.8 K/mcL (0.0-1.3); Monocytes % 6.5 %; Neutrophils # 8.3 K/mcL (1.6-8.9); Platelet Count 449 K/mcL (140-400); Red Blood Count 3.42 M/mcL (3.82-4.97); Red Cell Distribution Width 13.7 % (11.5-14.5); Segmented Neutrophils % 68.9 %; White Blood Count 12.1 K/mcL (4.3-11.1)
[2021-12-05] MEDS: Piperacillin/Tazobactam 3.375 GM in 0.9 % Sodium Chloride Mini Bag 100 ML IVPB SCH ×2 (04:53→11:20)
[2021-12-05] MEDS: *HR* Heparin 5,000 UNIT/ML VIAL SQ SCH ×2 (04:53→13:09)
[2021-12-05 04:56] LABS: BUN/Creatinine Ratio 16 (6-26); Blood Urea Nitrogen 14 mg/dL (8-23); Calcium 9.5 mg/dL (8.6-10.3); Carbon Dioxide 26 mEq/L (23-29); Chloride 100 mEq/L (98-107); Glucose 168 mg/dL (70-105); Osmolality,Calculated 286 (280-300); Potassium 4.4 mEq/L (3.5-5.1); Sodium 136 mEq/L (136-145); eGFR For African Americans > 60 (> 60); eGFR For Non-African Americans > 60 (> 60)
[2021-12-05] MEDS: Insulin LISPRO 300 UNITS/3 ML VIAL SUBQ SCH ×3 (08:53→17:03)
[2021-12-05] MEDS: Ascorbic Acid 500 MG TABLET PO SCH (08:54)
[2021-12-05] MEDS: Multivit/Ca/Min/Fe/FA 1 TAB TABLET PO SCH (08:54)
[2021-12-05 11:55] VITALS: TEMP 97.9
[2021-12-05] MEDS: *HR* HYDROcodone/Acet 5/325 mg TABLET PO PRN (13:09)
[2021-12-05 14:59] VITALS: BP 112/67; PULSE 79; O2SAT 97
== END 2021-12-05 17:45 | DRG 559 ==
LOC: 4WAOSI 07:26 → EMEROOARM 07:26 → SUATTDRO 14:47 → 4WAOSI 17:33 → SUATTDRO 12-01 12:47
PROVIDERS: ADMIT Internal Medicine; ATTEND Pharmacist